=== PATIENT | male | born 1945 | race American Indian/Alaskan Native ===

== ENCOUNTER 2016-11-26 03:59 | Inpatient (IN) | payer MEDICARE ==
[2016-11-26 04:45] LABS: Basophils % (Auto) 0.6 % (0.0-1.8); Eosinophils % (Auto) 2.3 % (0.0-4.3); Hematocrit 30.6 % (35.5-45.6); Hemoglobin 10.2 gm/dl (11.8-15.2); Mean Corpuscular HGB Conc 33 % (32-34); Mean Corpuscular Hemoglobin 32 pg (28-32); Mean Corpuscular Volume 96 fl (84-94); Platelet Count 177 K/mm3 (140-440); Red Cell Distribution Width 15.8 % (13.2-15.2); White Blood Count 7.3 K/mm3 (4.5-11.0)
[2016-11-26 04:54] LABS: INR 1.15 (0.87-1.13); Partial Thromboplastin Time 35.3 Sec. (24.2-36.6)
[2016-11-26] MEDS ORDERED: DUONEB *Not for PRN Use IH ONE ×3 (05:00→15:03)
[2016-11-26 05:05] LABS: BUN/Creatinine Ratio 3.98; Calcium 8.6 mg/dL (8.4-10.2); Chloride 98.5 mmol/L (98-107); Potassium 4.9 mmol/L (3.6-5.0)
--- NOTE | 2016-11-26 05:07 | XRay Report ---
FINAL REPORT EXAM: XR CHEST 1V AP HISTORY: Chest Pain TECHNIQUE: AP portable view(s) of the chest obtained. PRIORS: None. FINDINGS: No mediastinal shift. Mild cardiomegaly. Patchy perihilar opacities and lower lung predominant interstitial prominence. No definite pleural effusion no pneumothorax or acute skeletal finding. IMPRESSION: Patchy perihilar airspace disease may be superimposed on or secondary to moderate pulmonary interstitial edema. PA and lateral chest radiographic follow-up to resolution is recommended.
[2016-11-26] MEDS ORDERED: NORMODYNE IV ONE (05:30)
--- NOTE | 2016-11-26 05:37 | Emergency Department Report ---
HPI - General Chief Complaint: Dyspnea/Respdistress Time Seen by Provider: 11/26/16 04:12 - HPI HPI: This is a 71 year-old male presents to the emergency department by EMS from home with shortness of breath. On scene, the patient's oxygen saturation was in the 70s on room air. He was placed on a nonrebreather and had some improvement. He was given a sublingual nitroglycerin. He has denied any chest pain. The shortness of breath started this morning around 1: 30 AM. He has a history of diabetes, coronary artery disease with ID in 2013 with 2 stents, hypertension, CHF and end-stage renal disease on dialysis on Saturday/Saturday/Saturday. 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 He recently was at another hospital for similar symptoms and was admitted on BiPAP at that time. No recent travel or sick contacts at home. ED Past Medical Hx - Past Medical History Previous Medical History?: Yes Hx Hypertension: Yes Hx Heart Attack/AMI: Yes (2013 2 stents) Hx Diabetes: Yes - Surgical History Past Surgical History?: Yes Hx Coronary Stent: Yes (2013) Additional Surgical History: dialysis graft left FA - Social History Smoking Status: Never Smoker Substance Use Type: None - Medications Home Medications: Home Medications Medication Instructions Recorded Confirmed Last Taken Type Apixaban [Eliquis] 5 mg PO BID 11/26/16 11/26/16 11/25/16 History Carvedilol [Coreg] 25 mg PO BID 11/26/16 11/26/16 11/25/16 History Cinacalcet HCl [Sensipar] 90 mg PO TID 11/26/16 11/26/16 11/25/16 History Citalopram [celeXA] 20 mg PO QDAY 11/26/16 11/26/16 11/25/16 History Clopidogrel [Plavix] 75 mg PO QDAY 11/26/16 11/26/16 11/25/16 History Colchicine 0.6 mg PO DAILY 11/26/16 11/26/16 11/25/16 History ISOSORBIDE MONOnitrate [Imdur ER] 30 mg PO DAILY 11/26/16 11/26/16 11/25/16 History Lisinopril [Zestril TAB] 10 mg PO QDAY 11/26/16 11/26/16 11/25/16 History Mirtazapine 30 mg PO DAILY 11/26/16 11/26/16 11/25/16 History Omeprazole 20 mg PO DAILY 11/26/16 11/26/16 11/25/16 History Rosuvastatin Calcium 5 mg PO DAILY 11/26/16 11/26/16 11/25/16 History Sevelamer Carbonate [Renvela] 800 mg PO TIDWM 11/26/16 11/26/16 11/25/16 History ED Review of Systems ROS: Stated complaint: POSS ID Other details as noted in HPI Comment: All other systems reviewed and negative Constitutional: denies: chills, fever Eyes: denies: eye pain, eye discharge, vision change ENT: denies: ear pain, throat pain Respiratory: orthopnea, shortness of breath, SOB with exertion, SOB at rest Cardiovascular: denies: chest pain, edema Gastrointestinal: denies: abdominal pain, nausea, diarrhea Genitourinary: denies: urgency, dysuria Musculoskeletal: denies: back pain, joint swelling, arthralgia Skin: denies: rash, lesions Neurological: denies: headache, weakness, paresthesias Physical Exam - Physical Exam Vital Signs: Vital Signs 11/26/16 11/26/16 11/26/16 04:02 04:07 04:15 Temperature 98.2 F Pulse Rate 88 89 86 Pulse Rate [ Posterior Bilateral Throughout] Respiratory 33 H 30 H 37 H Rate Respiratory Rate [Posterior Bilateral Throughout] Blood Pressure 181/93 166/83 Blood Pressure 181/93 [Right] O2 Sat by Pulse 95 99 Oximetry 11/26/16 11/26/16 11/26/16 04:24 04:30 04:45 Temperature Pulse Rate 94 H 99 H Pulse Rate [ Posterior Bilateral Throughout] Respiratory 23 34 H Rate Respiratory Rate [Posterior Bilateral Throughout] Blood Pressure 178/87 177/93 Blood Pressure [Right] O2 Sat by Pulse 96 Oximetry 11/26/16 11/26/16 11/26/16 05:00 05:15 05:16 Temperature Pulse Rate 111 H 137 H Pulse Rate [ 135 H Posterior Bilateral Throughout] Respiratory 38 H 32 H Rate Respiratory 32 H Rate [Posterior Bilateral Throughout] Blood Pressure 177/93 162/120 Blood Pressure [Right] O2 Sat by Pulse 85 Oximetry 11/26/16 05:18 Temperature Pulse Rate 138 H Pulse Rate [ Posterior Bilateral Throughout] Respiratory 32 H Rate Respiratory Rate [Posterior Bilateral Throughout] Blood Pressure 211/120 Blood Pressure [Right] O2 Sat by Pulse 86 Oximetry Physical Exam: GENERAL: The patient is well-developed well-nourished. HENT: Normocephalic. Atraumatic. Patient has moist mucous membranes. EYES: Extraocular motions are intact. Pupils equal reactive to light bilaterally. NECK: Supple. Trachea is midline. CHEST/LUNGS: Coarse breath sounds at the chest. There is some tachypnea and supraclavicular accessory muscle use. There is respiratory distress noted. HEART/CARDIOVASCULAR: Regular. There is no tachycardia. There is no gallop rub or murmur. ABDOMEN: Abdomen is soft, nontender. Patient has normal bowel sounds. There is no abdominal distention. SKIN: Skin is warm but there is some diaphoresis. NEURO: The patient is awake, alert, and oriented. The patient is cooperative. The patient has no focal neurologic deficits. MUSCULOSKELETAL: There is no tenderness or deformity. There is no limitation range of motion. There is no evidence of acute injury. There is a dialysis fistula to the left upper extremity that appears patent. ED Course Vital Signs 11/26/16 11/26/16 11/26/16 04:02 04:07 04:15 Temperature 98.2 F Pulse Rate 88 89 86 Pulse Rate [ Posterior Bilateral Throughout] Respiratory 33 H 30 H 37 H Rate Respiratory Rate [Posterior Bilateral Throughout] Blood Pressure 181/93 166/83 Blood Pressure 181/93 [Right] O2 Sat by Pulse 95 99 Oximetry 11/26/16 11/26/16 11/26/16 04:24 04:30 04:45 Temperature Pulse Rate 94 H 99 H Pulse Rate [ Posterior Bilateral Throughout] Respiratory 23 34 H Rate Respiratory Rate [Posterior Bilateral Throughout] Blood Pressure 178/87 177/93 Blood Pressure [Right] O2 Sat by Pulse 96 Oximetry 11/26/16 11/26/16 11/26/16 05:00 05:15 05:16 Temperature Pulse Rate 111 H 137 H Pulse Rate [ 135 H Posterior Bilateral Throughout] Respiratory 38 H 32 H Rate Respiratory 32 H Rate [Posterior Bilateral Throughout] Blood Pressure 177/93 162/120 Blood Pressure [Right] O2 Sat by Pulse 85 Oximetry 11/26/16 05:18 Temperature Pulse Rate 138 H Pulse Rate [ Posterior Bilateral Throughout] Respiratory 32 H Rate Respiratory Rate [Posterior Bilateral Throughout] Blood Pressure 211/120 Blood Pressure [Right] O2 Sat by Pulse 86 Oximetry - Consultations Consultation #1: I spoke to the jewel bearing facer on-call, Dr. Miller, who says that he will arrange for the patient to receive dialysis early this morning. 11/26/16 06:39 ED Medical Decision Making - Lab Data Result diagrams: 11/26/16 04:23 11/26/16 04:23 - EKG Data -: EKG Interpreted by Me EKG shows normal: sinus rhythm, axis, intervals (prolonged QT/QTc), QRS complexes (LVH), ST-T waves (there is some hyperacute T waves,) Rate: normal - EKG Data When compared to previous EKG there are: previous EKG unavailable Interpretation: other (sinus rhythm, LVH, prolonged QT/QTC, hyperacute T waves) - Radiology Data Radiology results: image reviewed interpreted by me: Chest x-ray shows some pulmonary vascular congestion and some basilar pleural effusions. - Medical Decision Making 71-year-old male presents with some shortness of breath since late last night. He is due for dialysis today and appears volume overloaded. He came in on a nonrebreather and was moved to a BiPAP. EKG does not show any ST elevation ID. There is no hyperkalemia labs. However chest x-ray shows vascular congestion and pleural effusions. Patient appears more stable on BiPAP and will remain on it until dialysis. Nephrology should be arranging for dialysis early this morning. Patient accepted for admission by the hospitalist, Dr Gomez. - Differential Diagnosis pneumonia, CHF, hyperkalemia, ID Critical Care Time: No Critical care attestation.: If time is entered above; I have spent that time in minutes in the direct care of this critically ill patient, excluding procedure time. ED Disposition Clinical Impression: End-stage renal disease needing dialysis Dyspnea Qualifiers: Dyspnea type: shortness of breath Qualified Code(s): R06.02 - Shortness of breath; R06.00 - Dyspnea, unspecified; R06.01 - Orthopnea Volume overload Qualifiers: Hypervolemia type: unspecified Qualified Code(s): E87.70 - Fluid overload, unspecified CHF (congestive heart failure) Qualifiers: Congestive heart failure type: unspecified congestive heart failure type Congestive heart failure chronicity: unspecified congestive heart failure chronicity Qualified Code(s): I50.9 - Heart failure, unspecified Disposition: 09 OP ADMIT IP TO THIS HOSP Is pt being admited?: Yes Condition: Stable Referrals: PRIMARY CARE, [Primary Care Provider] - 3-5 Days Time of Disposition: 06:42
[2016-11-26] MEDS ORDERED: CARDENE 50 MG in NACL 0.9% 250ML 230 ML IV SCH (06:00)
[2016-11-26] MEDS ORDERED: NACL 0.9% 100 ML IV PRN (07:03)
[2016-11-26] MEDS ORDERED: NON-FORMULARY (Cinacalcet Hcl [Sensipar] 90 MG) PO SCH (08:00)
[2016-11-26] MEDS ORDERED: PROVENTIL IH PRN (08:00)
[2016-11-26] MEDS ORDERED: ZOFRAN IM PRN (08:02)
--- NOTE | 2016-11-26 08:06 | History and Physical Report ---
<YVON LEES - Last Filed: 11/26/16 18:31> History of Present Illness Date of examination: 11/26/16 Date of admission: 11/26/2016 Chief complaint: shortness of breath History of present illness: Patient is a 71 year-old male with past medical history of diabetes, coronary artery disease with IN in 2013 with 2 stents, hypertension, CHF and end-stage renal disease on dialysis on Saturday/Saturday/Saturday,presents to the emergency department by EMS from home with shortness of breath. He recently was at [facility] for similar symptoms and was discharged on 11/17/16. Patient since discharge from [facility] patient developed dyspnea on exertion. Patient difficulty of breathing gets worst this morning around 1:30 AM he has had progressive worsening of shortness of breath to the point could not catch his breath.His called 911 and they brought him to the ED. No alleviating and aggravating factors. Patient denies he has had no fevers, chills, or cough, night sweats. No hx of recurrent pneumonia. he has no sick contact, TB exposure (that she knows of ie incarcerated, homeless). He also has no pets, has not been around any farm animals, and has not traveled recently or been around those who have. Patient currently on continues BiPAP with oxygen saturation of >95%. no acute respiratory distress noted. 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 Past History Past Medical History: diabetes, ESRD, heart failure, hypertension, other (IN in 2013) Past Surgical History: Other (Dialysis graft left FA and stent placement in 2013 ) Social history: denies: smoking, alcohol abuse Family history: CAD, hypertension Medications and Allergies Allergies Allergy/AdvReac Type Severity Reaction Status Date / Time No Known Allergies Allergy Unverified 12/24/13 08:06 Home Medications Medication Instructions Recorded Confirmed Last Taken Type Apixaban [Eliquis] 5 mg PO BID 11/26/16 11/26/16 11/25/16 History Carvedilol [Coreg] 25 mg PO BID 11/26/16 11/26/16 11/25/16 History Cinacalcet HCl [Sensipar] 90 mg PO TID 11/26/16 11/26/16 11/25/16 History Citalopram [celeXA] 20 mg PO QDAY 11/26/16 11/26/16 11/25/16 History Clopidogrel [Plavix] 75 mg PO QDAY 11/26/16 11/26/16 11/25/16 History Colchicine 0.6 mg PO DAILY 11/26/16 11/26/16 11/25/16 History ISOSORBIDE MONOnitrate [Imdur ER] 30 mg PO DAILY 11/26/16 11/26/16 11/25/16 History Lisinopril [Zestril TAB] 10 mg PO QDAY 11/26/16 11/26/16 11/25/16 History Mirtazapine 30 mg PO DAILY 11/26/16 11/26/16 11/25/16 History Omeprazole 20 mg PO DAILY 11/26/16 11/26/16 11/25/16 History Rosuvastatin Calcium 5 mg PO DAILY 11/26/16 11/26/16 11/25/16 History Sevelamer Carbonate [Renvela] 800 mg PO TIDWM 11/26/16 11/26/16 11/25/16 History Active Meds: Active Medications Al Hydrox/Mg Hydrox/Simethicone (Alum-Mag Hydrox-Simeth [id number]/5ml) 30 ml PO Q4H PRN PRN Reason: Indigestion Albuterol (Proventil) 2.5 mg IH Q3HRT PRN PRN Reason: Shortness Of Breath Albuterol/Ipratropium (Duoneb *Not For Prn Use*) 1 ampul IH Q6HRT SHANTELL Apixaban (Eliquis) 5 mg PO BID SHANTELL PRN Reason: Protocol Bisacodyl (Dulcolax) 10 mg IN QDAY PRN PRN Reason: constipation unrelieved by MOM Carvedilol (Coreg) 25 mg PO BID SHANTELL Citalopram Hydrobromide (Celexa) 20 mg PO QDAY SHANTELL Clopidogrel Bisulfate (Plavix) 75 mg PO QDAY SHANTELL Nicardipine HCl 50 mg/ Sodium (Chloride) 250 mls @ 25 mls/hr IV TITR SHANTELL; 5 MG/ HR PRN Reason: Protocol Sodium Chloride (Nacl 0.9%) 100 mls @ 999 mls/hr IV TANIKA PRN PRN Reason: Hypotension Isosorbide Mononitrate (Imdur) 30 mg PO DAILY [facility] Lisinopril (Zestril) 10 mg PO QDAY [facility] Mirtazapine (Remeron) 30 mg PO DAILY [facility] Miscellaneous Medication (Cinacalcet Hcl [Sensipar]) 90 mg PO TID [facility] Miscellaneous Medication (Colchicine [Colchicine]) 0.6 mg PO DAILY [facility] Miscellaneous Medication (Omeprazole [Omeprazole]) 20 mg PO DAILY [facility] Miscellaneous Medication (Rosuvastatin Calcium [Rosuvastatin Calcium]) 5 mg PO DAILY [facility] Morphine Sulfate (Morphine) 2 mg IV Q4H PRN PRN Reason: Pain, Moderate (4-6) Ondansetron HCl (Zofran) 4 mg IM Q4H PRN PRN Reason: Nausea And Vomiting Sevelamer Carbonate (Renvela) 800 mg PO TIDWM [facility] Review of Systems Constitutional: no weight loss, no weight gain, no fever, no chills Ears, nose, mouth and throat: no ear discharge, no tinnitis, no decreased hearing, no nose pain, no nasal congestion Cardiovascular: shortness of breath, dyspnea on exertion, paroxysmal nocturnal dyspnea, no chest pain, no orthopnea, no palpitations, no rapid/irregular heart beat, no syncope, no lightheadedness Respiratory: cough, shortness of breath, dyspnea on exertion, congestion, no cough with sputum, no excessive sputum, no hemoptysis Gastrointestinal: no abdominal pain, no nausea, no vomiting, no diarrhea, no constipation Genitourinary Male: no hematuria, no flank pain, no discharge, no urinary frequency Rectal: no incontinence, no bleeding Musculoskeletal: no neck pain, no shooting arm pain, no arm numbness/tingling, no low back pain Integumentary: no pruritis, no redness, no sores, no wounds, no jaundice Neurological: no transient paralysis, no paralysis, no weakness, no parathesias Psychiatric: no memory loss, no change in sleep habits, no sleep disturbances, no insomnia, no hypersomnia, no change in appetite Endocrine: no heat intolerance, no polyphagia, no excessive thirst, no polydipsia, no nocturia Hematologic/Lymphatic: no easy bruising, no easy bleeding Allergic/Immunologic: no urticaria, no allergic rhinitis Exam - Constitutional Vitals: Temp Pulse Resp BP Pulse Ox 98.2 F 87 30 H 149/79 92 11/26/16 04:07 11/26/16 07:06 11/26/16 07:06 11/26/16 07:06 11/26/16 07:06 General appearance: Present: mild distress, other (on BiPAP 50% with SPO2 >95%) - EENT Eyes: Present: PERRL ENT: hearing intact - Neck Neck: Present: supple - Respiratory Respiratory effort: normal Respiratory: bilateral: rales, wheezing - Cardiovascular Rhythm: regular Heart Sounds: Present: S1 & S2 - Extremities Extremities: no ischemia Peripheral Pulses: within normal limits - Abdominal General gastrointestinal: Present: soft, non-tender Male genitourinary: Present: deferred - Rectal Rectal Exam: deferred - Integumentary Integumentary: Present: clear, warm, dry - Musculoskeletal Musculoskeletal: strength equal bilaterally - Psychiatric Psychiatric: appropriate mood/affect - Neurologic Neurologic: CNII-XII intact - Allied Health Allied health notes reviewed: nursing Results - Labs CBC & Chem 7: 11/26/16 04:23 11/26/16 04:23 Labs: Laboratory Last Values WBC 7.3 K/mm3 (4.5-11.0) 11/26/16 04:23 RBC 3.20 M/mm3 (3.65-5.03) L 11/26/16 04:23 Hgb 10.2 gm/dl (11.8-15.2) L 11/26/16 04:23 Hct 30.6 % (35.5-45.6) L 11/26/16 04:23 MCV 96 fl (84-94) H 11/26/16 04:23 MCH 32 pg (28-32) 11/26/16 04:23 MCHC 33 % (32-34) 11/26/16 04:23 RDW 15.8 % (13.2-15.2) H 11/26/16 04:23 Plt Count 177 K/mm3 (140-440) 11/26/16 04:23 Lymph % (Auto) 13.5 % (13.4-35.0) 11/26/16 04:23 [place]ry % (Auto) 9.3 % (0.0-7.3) H 11/26/16 04:23 Eos % (Auto) 2.3 % (0.0-4.3) 11/26/16 04:23 Baso % (Auto) 0.6 % (0.0-1.8) 11/26/16 04:23 Lymph # 1.0 K/mm3 (1.2-5.4) L 11/26/16 04:23 [place] # 0.7 K/mm3 (0.0-0.8) 11/26/16 04:23 Eos # 0.2 K/mm3 (0.0-0.4) 11/26/16 04:23 Baso # 0.0 K/mm3 (0.0-0.1) 11/26/16 04:23 Seg Neutrophils % 74.3 % (40.0-70.0) H 11/26/16 04:23 Seg Neutrophils # 5.4 K/mm3 (1.8-7.7) 11/26/16 04:23 PT 14.6 Sec. (12.2-14.9) 11/26/16 04:23 INR 1.15 (0.87-1.13) H 11/26/16 04:23 APTT 35.3 Sec. (24.2-36.6) 11/26/16 04:23 D-Dimer 276.39 ng/mlDDU (0-234) H 11/26/16 04:23 Sodium 140 mmol/L (137-145) 11/26/16 04:23 Potassium 4.9 mmol/L (3.6-5.0) 11/26/16 04:23 Chloride 98.5 mmol/L (98-107) 11/26/16 04:23 Carbon Dioxide 24 mmol/L (22-30) 11/26/16 04:23 Anion Gap 22 mmol/L 11/26/16 04:23 BUN 51 mg/dL (9-20) H 11/26/16 04:23 Creatinine 12.8 mg/dL (0.8-1.5) H 11/26/16 04:23 Estimated GFR 5 ml/min 11/26/16 04:23 BUN/Creatinine Ratio 3.98 % 11/26/16 04:23 Glucose 166 mg/dL (75-100) H 11/26/16 04:23 Calcium 8.6 mg/dL (8.4-10.2) 11/26/16 04:23 Troponin T 0.319 ng/mL (0.00-0.029) H* 11/26/16 04:23 Triglycerides 92 mg/dL (2-149) 11/26/16 04:23 Cholesterol 104 mg/dL (50-199) 11/26/16 04:23 LDL Cholesterol Direct 47 mg/dL (50-130) L 11/26/16 04:23 HDL Cholesterol 50 mg/dL (40-59) 11/26/16 04:23 Cholesterol/HDL Ratio 2.08 % 11/26/16 04:23 - Imaging and Cardiology Chest x-ray: image reviewed (Patchy perihilr airspace may be superimposed on or secondary to moderate pulmonary interstitial edema.) Assessment and Plan Assessment and plan: Patient is a 71 year-old male with past medical history of diabetes, coronary artery disease with IN in 2013 with 2 stents, hypertension, CHF and end-stage renal disease on dialysis on Saturday/Saturday/Saturday,presents to the emergency department by EMS from home with shortness of breath. He recently was at [facility] for similar symptoms and was discharged on 11/17/16. Patient since discharge from [facility] patient developed dyspnea on exertion. Patient difficulty of breathing gets worst this morning around 1:30 AM he has had progressive worsening of shortness of breath. Acute respiratory failure with hypoxia Patient oxygen saturation improved with BiPAP 50%.Patient currently on BiPAP 35 % with SPO2 98%. No acute respiratory distress noted. Aggressive Nebulizers/Inhalers ABG when necessary Oxygen supplement Pulmonary consult. Supportive care Acute on chronic combined systolic and diastolic heart failure Patient has recent Echocardiogram with left ventricle ejection fraction of 30-35 % Continue on Diuresis, beta blockers and ACEI/ARB Strict I&O's and daily weights Low-sodium/cardiac diet, fluid restriction 1200 mg every 24 hours Closely monitor electrolytes Cardiology evaluation Acute pulmonary edema Emergent hemodialysis for fluid removal Nephrology consulted Elevated D-maria esther closely monitor Elevated troponin level Most likely due to ESRD and CHF Cardiology evaluation Hypertension We will resume home antihypertensive medications Closely monitor blood pressure Diabetes mellitus Accu-Chek before meals and at bedtime Sliding scale insulin/NovoLog Chronic Anemia Stable at this time no need of transfusion Closely monitor H&H DVT/Prophylaxis Lovenox Advance Directives: Yes VTE prophylaxis?: Chemical Contraindication Mechanical VTE Prophylaxis: Treatment Not Indicated Plan of care discussed with patient/family: Yes <KATEY GIRARD R - Last Filed: 11/26/16 23:44> History of Present Illness Date of admission: 11/26/16 07:56 Exam - Constitutional Vitals: Temp Pulse Resp BP Pulse Ox 98.8 F 108 H 20 122/64 96 11/26/16 19:55 11/26/16 21:40 11/26/16 21:40 11/26/16 21:40 11/26/16 21:40 Results - Labs CBC & Chem 7: 11/26/16 04:23 11/26/16 04:23 Labs: Laboratory Last Values WBC 7.3 K/mm3 (4.5-11.0) 11/26/16 04:23 RBC 3.20 M/mm3 (3.65-5.03) L 11/26/16 04:23 Hgb 10.2 gm/dl (11.8-15.2) L 11/26/16 04:23 Hct 30.6 % (35.5-45.6) L 11/26/16 04:23 MCV 96 fl (84-94) H 11/26/16 04:23 MCH 32 pg (28-32) 11/26/16 04:23 MCHC 33 % (32-34) 11/26/16 04:23 RDW 15.8 % (13.2-15.2) H 11/26/16 04:23 Plt Count 177 K/mm3 (140-440) 11/26/16 04:23 Lymph % (Auto) 13.5 % (13.4-35.0) 11/26/16 04:23 Surry % (Auto) 9.3 % (0.0-7.3) H 11/26/16 04:23 Eos % (Auto) 2.3 % (0.0-4.3) 11/26/16 04:23 Baso % (Auto) 0.6 % (0.0-1.8) 11/26/16 04:23 Lymph # 1.0 K/mm3 (1.2-5.4) L 11/26/16 04:23 [place] # 0.7 K/mm3 (0.0-0.8) 11/26/16 04:23 Eos # 0.2 K/mm3 (0.0-0.4) 11/26/16 04:23 Baso # 0.0 K/mm3 (0.0-0.1) 11/26/16 04:23 Seg Neutrophils % 74.3 % (40.0-70.0) H 11/26/16 04:23 Seg Neutrophils # 5.4 K/mm3 (1.8-7.7) 11/26/16 04:23 PT 14.6 Sec. (12.2-14.9) 11/26/16 04:23 INR 1.15 (0.87-1.13) H 11/26/16 04:23 APTT 35.3 Sec. (24.2-36.6) 11/26/16 04:23 D-Dimer 276.39 ng/mlDDU (0-234) H 11/26/16 04:23 Sodium 140 mmol/L (137-145) 11/26/16 04:23 Potassium 4.9 mmol/L (3.6-5.0) 11/26/16 04:23 Chloride 98.5 mmol/L (98-107) 11/26/16 04:23 Carbon Dioxide 24 mmol/L (22-30) 11/26/16 04:23 Anion Gap 22 mmol/L 11/26/16 04:23 BUN 51 mg/dL (9-20) H 11/26/16 04:23 Creatinine 12.8 mg/dL (0.8-1.5) H 11/26/16 04:23 Estimated GFR 5 ml/min 11/26/16 04:23 BUN/Creatinine Ratio 3.98 % 11/26/16 04:23 Glucose 166 mg/dL (75-100) H 11/26/16 04:23 POC Glucose 153 (70-105) H 11/26/16 14:16 Calcium 8.6 mg/dL (8.4-10.2) 11/26/16 04:23 Troponin T 0.319 ng/mL (0.00-0.029) H* 11/26/16 04:23 Triglycerides 92 mg/dL (2-149) 11/26/16 04:23 Cholesterol 104 mg/dL (50-199) 11/26/16 04:23 LDL Cholesterol Direct 47 mg/dL (50-130) L 11/26/16 04:23 HDL Cholesterol 50 mg/dL (40-59) 11/26/16 04:23 Cholesterol/HDL Ratio 2.08 % 11/26/16 04:23 Assessment and Plan Assessment and plan: I saw and evaluated the patient. I agree with the findings and the plan of care as documented in the Nurse Practitioner's~note. Patient presented with acute respiratory failure with hypoxia due to cute pulmonary edema from volume overload due to acute on chronic CHF.
[2016-11-26] MEDS ORDERED: D50W (25GM) Syringe IV PRN (09:00)
[2016-11-26] MEDS ORDERED: ALUM-MAG HYDROX-SIMETH 200-200-20MG/5ML PO PRN (09:00)
[2016-11-26] MEDS: RENVELA PO SCH ×2 (09:17→14:25)
[2016-11-26] MEDS: DUONEB *Not for PRN Use IH SCH ×3 (09:39→20:05)
[2016-11-26] MEDS ORDERED: DULCOLAX PR PRN (10:00)
[2016-11-26] MEDS ORDERED: NON-FORMULARY (Colchicine [Colchicine] 0.6 MG) PO SCH (10:00)
[2016-11-26] MEDS ORDERED: COREG PO SCH (10:00)
[2016-11-26] MEDS ORDERED: MORPHINE IV PRN (10:00)
[2016-11-26] MEDS ORDERED: PLAVIX PO SCH (10:00)
[2016-11-26] MEDS ORDERED: celeXA PO SCH (10:00)
[2016-11-26] MEDS ORDERED: NON-FORMULARY (Omeprazole [Omeprazole] 20 MG) PO SCH (10:00)
[2016-11-26] MEDS ORDERED: PROTONIX PO SCH (10:00)
[2016-11-26] MEDS ORDERED: ZESTRIL PO SCH (10:00)
[2016-11-26] MEDS ORDERED: COLCRYS PO SCH ×2 (10:00→11:00)
[2016-11-26] MEDS ORDERED: ROSUVASTATIN CALCIUM 5 MG PO SCH (10:00)
[2016-11-26] MEDS ORDERED: ELIQUIS PO SCH (10:00)
[2016-11-26] MEDS ORDERED: REMERON PO SCH (11:00)
[2016-11-26] MEDS ORDERED: IMDUR PO SCH (11:00)
[2016-11-26] MEDS ORDERED: NOVOLOG SUB-Q SCH ×2 (11:30→22:00)
--- NOTE | 2016-11-26 11:30 | Consultation ---
History of Present Illness - Reason for Consult Consult date: 11/26/16 end stage renal disease - History of Present Illness 71yr old male with end stage renal disease on HD on MWF schedule at [facility] dialysis with Dr Boothe, admitted after he presents to the hospital with complaints of shortness of breath x 1 day duration. He states that he has been compliant with his fluid/salt restriction with dialysis and did not miss his dialysis. He has AVF for dialysis. In the ER he is placed on Bipap. Chest x- ray reports vascular congestion. Past History Past Medical History: diabetes, ESRD, heart failure, hypertension, other ([place] in 2014) Past Surgical History: Other (Dialysis graft left FA and stent placement in 2013 ) Social history: denies: smoking, alcohol abuse Family history: CAD, hypertension Medications and Allergies Allergies Allergy/AdvReac Type Severity Reaction Status Date / Time No Known Allergies Allergy Unverified 12/24/13 08:06 Home Medications Medication Instructions Recorded Confirmed Last Taken Type Apixaban [Eliquis] 5 mg PO BID 11/26/16 11/26/16 11/25/16 History Carvedilol [Coreg] 25 mg PO BID 11/26/16 11/26/16 11/25/16 History Cinacalcet HCl [Sensipar] 90 mg PO TID 11/26/16 11/26/16 11/25/16 History Citalopram [celeXA] 20 mg PO QDAY 11/26/16 11/26/16 11/25/16 History Clopidogrel [Plavix] 75 mg PO QDAY 11/26/16 11/26/16 11/25/16 History Colchicine 0.6 mg PO DAILY 11/26/16 11/26/16 11/25/16 History ISOSORBIDE MONOnitrate [Imdur ER] 30 mg PO DAILY 11/26/16 11/26/16 11/25/16 History Lisinopril [Zestril TAB] 10 mg PO QDAY 11/26/16 11/26/16 11/25/16 History Mirtazapine 30 mg PO DAILY 11/26/16 11/26/16 11/25/16 History Omeprazole 20 mg PO DAILY 11/26/16 11/26/16 11/25/16 History Rosuvastatin Calcium 5 mg PO DAILY 11/26/16 11/26/16 11/25/16 History Sevelamer Carbonate [Renvela] 800 mg PO TIDWM 11/26/16 11/26/16 11/25/16 History Active Meds: Active Medications Al Hydrox/Mg Hydrox/Simethicone (Alum-Mag Hydrox-Simeth 585-900-03xw/5ml) 30 ml PO Q4H PRN PRN Reason: Indigestion Albuterol (Proventil) 2.5 mg IH Q3HRT PRN PRN Reason: Shortness Of Breath Albuterol/Ipratropium (Duoneb *Not For Prn Use*) 1 ampul IH Q6HRT [facility] Last Admin: 11/26/16 09:39 Dose: 1 ampul Apixaban (Eliquis) 5 mg PO BID [facility] PRN Reason: Protocol Bisacodyl (Dulcolax) 10 mg [place] QDAY PRN PRN Reason: constipation Carvedilol (Coreg) 25 mg PO BID [facility] Citalopram Hydrobromide (Celexa) 20 mg PO QDAY [facility] Clopidogrel Bisulfate (Plavix) 75 mg PO QDAY [facility] Colchicine (Colcrys) 0.6 mg PO QDAY [facility] Dextrose (D50w (25gm) Syringe) 50 ml IV PRN PRN PRN Reason: Hypoglycemia Furosemide (Lasix) 40 mg IV 0600,1800 [facility] Nicardipine HCl 50 mg/ Sodium (Chloride) 250 mls @ 25 mls/hr IV TITR [facility]; 5 MG/ HR PRN Reason: Protocol Sodium Chloride (Nacl 0.9%) 100 mls @ 999 mls/hr IV TANIKA PRN PRN Reason: Hypotension Insulin Aspart (Novolog) 0 units SUB-Q AC [facility] PRN Reason: Protocol Insulin Aspart (Novolog) 0 units SUB-Q QHS [facility] PRN Reason: Protocol Isosorbide Mononitrate (Imdur) 30 mg PO DAILY [facility] Lisinopril (Zestril) 10 mg PO QDAY [facility] Mirtazapine (Remeron) 30 mg PO DAILY [facility] Miscellaneous Medication (Cinacalcet Hcl [Sensipar]) 90 mg PO TID [facility] Last Admin: 11/26/16 09:17 Dose: Not Given Miscellaneous Medication (Colchicine [Colchicine]) 0.6 mg PO DAILY [facility] Miscellaneous Medication (Omeprazole [Omeprazole]) 20 mg PO DAILY [facility] Miscellaneous Medication (Rosuvastatin Calcium [Rosuvastatin Calcium]) 5 mg PO DAILY [facility] Morphine Sulfate (Morphine) 2 mg IV Q4H PRN PRN Reason: Pain, Moderate (4-6) Ondansetron HCl (Zofran) 4 mg IM Q4H PRN PRN Reason: Nausea And Vomiting Sevelamer Carbonate (Renvela) 800 mg PO TIDWM [facility] Last Admin: 11/26/16 09:17 Dose: Not Given Review of Systems Constitutional: fatigue, no weight loss, no weight gain Ears, nose, mouth and throat: no nasal congestion, no nasal discharge, no sinus pressure, no dysphagia Cardiovascular: orthopnea, shortness of breath, no chest pain Respiratory: cough with sputum Gastrointestinal: no abdominal pain, no nausea, no vomiting Genitourinary Male: no dysuria, no hematuria, no flank pain Rectal: no pain, no incontinence Musculoskeletal: no neck pain, no shooting arm pain, no low back pain Integumentary: no rash, no pruritis, no redness, no sores Neurological: no paralysis, no weakness, no numbness, no tingling Psychiatric: no anxiety, no memory loss Endocrine: no cold intolerance, no heat intolerance Hematologic/Lymphatic: no easy bruising, no easy bleeding Exam - Vital Signs Vital signs: Vital Signs Pulse Resp 88 33 H 11/26/16 04:02 11/26/16 04:02 - General Appearance General appearance: well-developed, well-nourished, appears stated age, moderate distress, other (on bipap) EENT: PERRL, mucous membranes moist Neck: Present: neck supple, trachea midline. Absent: JVD/HJR, Masses Respiratory: Rales, Ronchi Heart: regular, normal heart rate, S1S2, no murmurs Gastrointestinal: Present: normoactive bowel sounds. Absent: tenderness Integumentary: no rash, warm and dry Neurologic: no focal deficit, alert and oriented x3, gait normal, strength 5/5 Musculoskeletal: Absent: deformities, joint swelling Psychiatric: mood/affect appropriate, cooperative Results - Lab Results 11/26/16 04:23 11/26/16 04:23 Most recent lab results Calcium 8.6 mg/dL (8.4-10.2) 11/26/16 04:23 Assessment and Plan 1. ESRD on HD 2. Fluid overload 3. Acute hypoxic respiratory failure 4. Cardiomyopathy 5. Essential Hypertension 6. Anemia of ESRD Plan: Dialysis arrangement made Will remove 3-4 L as BP/HR allows Will re evaluate for more ultrafiltration in am Epogen on dialysis Continue BiPAP support Resume oral antihypertensives Discussed with RN
--- NOTE | 2016-11-26 12:50 | Consultation ---
History of Present Illness Consult date: 11/26/16 Consult reason: elevated troponin History of present illness: This is a 71yr old male with end stage renal disease who presents to this hospital with complaints of shortness of breath. Patient is currently on Bipap therapy. Chest x-ray reports vascular congestion. He denies any missed dialysis sessions. Reports he was recently discharged from [facility] with similar symptoms. A cardiac consultation was requested for elevated troponin of 0.31. This is likely in the setting of renal disease, creatinine of 12.8 on presentation. Patient denies chest pain. His ECG shows a sinus rhythm with LVH of repolarization abnormalities. Past History Past Medical History: diabetes, ESRD, heart failure, hypertension, other ([place] in 2013) Past Surgical History: Other (Dialysis graft left FA and stent placement in 2013 ) Social history: denies: smoking, alcohol abuse Family history: CAD, hypertension Medications and Allergies Allergies Allergy/AdvReac Type Severity Reaction Status Date / Time No Known Allergies Allergy Unverified 12/24/13 08:06 Home Medications Medication Instructions Recorded Confirmed Last Taken Type Apixaban [Eliquis] 5 mg PO BID 11/26/16 11/26/16 11/25/16 History Carvedilol [Coreg] 25 mg PO BID 11/26/16 11/26/16 11/25/16 History Cinacalcet HCl [Sensipar] 90 mg PO TID 11/26/16 11/26/16 11/25/16 History Citalopram [celeXA] 20 mg PO QDAY 11/26/16 11/26/16 11/25/16 History Clopidogrel [Plavix] 75 mg PO QDAY 11/26/16 11/26/16 11/25/16 History Colchicine 0.6 mg PO DAILY 11/26/16 11/26/16 11/25/16 History ISOSORBIDE MONOnitrate [Imdur ER] 30 mg PO DAILY 11/26/16 11/26/16 11/25/16 History Lisinopril [Zestril TAB] 10 mg PO QDAY 11/26/16 11/26/16 11/25/16 History Mirtazapine 30 mg PO DAILY 11/26/16 11/26/16 11/25/16 History Omeprazole 20 mg PO DAILY 11/26/16 11/26/16 11/25/16 History Rosuvastatin Calcium 5 mg PO DAILY 11/26/16 11/26/16 11/25/16 History Sevelamer Carbonate [Renvela] 800 mg PO TIDWM 11/26/16 11/26/16 11/25/16 History Active Meds: Active Medications Al Hydrox/Mg Hydrox/Simethicone (Alum-Mag Hydrox-Simeth [id number]/5ml) 30 ml PO Q4H PRN PRN Reason: Indigestion Albuterol (Proventil) 2.5 mg IH Q3HRT PRN PRN Reason: Shortness Of Breath Albuterol/Ipratropium (Duoneb *Not For Prn Use*) 1 ampul IH Q6HRT [facility] Last Admin: 11/26/16 09:39 Dose: 1 ampul Apixaban (Eliquis) 5 mg PO BID [facility] PRN Reason: Protocol Atorvastatin Calcium (Lipitor) 10 mg PO QHS [facility] Bisacodyl (Dulcolax) 10 mg [place] QDAY PRN PRN Reason: constipation Carvedilol (Coreg) 25 mg PO BID [facility] Citalopram Hydrobromide (Celexa) 20 mg PO QDAY [facility] Clopidogrel Bisulfate (Plavix) 75 mg PO QDAY [facility] Colchicine (Colcrys) 0.6 mg PO QDAY [facility] Colchicine (Colcrys) 0.6 mg PO QDAY [facility] Dextrose (D50w (25gm) Syringe) 50 ml IV PRN PRN PRN Reason: Hypoglycemia Furosemide (Lasix) 40 mg IV 0600,1800 [facility] Nicardipine HCl 50 mg/ Sodium (Chloride) 250 mls @ 25 mls/hr IV TITR [facility]; 5 MG/ HR PRN Reason: Protocol Sodium Chloride (Nacl 0.9%) 100 mls @ 999 mls/hr IV TANIKA PRN PRN Reason: Hypotension Insulin Aspart (Novolog) 0 units SUB-Q AC [facility] PRN Reason: Protocol Insulin Aspart (Novolog) 0 units SUB-Q QHS [facility] PRN Reason: Protocol Isosorbide Mononitrate (Imdur) 30 mg PO DAILY [facility] Lisinopril (Zestril) 10 mg PO QDAY [facility] Mirtazapine (Remeron) 30 mg PO DAILY [facility] Morphine Sulfate (Morphine) 2 mg IV Q4H PRN PRN Reason: Pain, Moderate (4-6) Ondansetron HCl (Zofran) 4 mg IM Q4H PRN PRN Reason: Nausea And Vomiting Pantoprazole Sodium (Protonix) 20 mg PO QDAY [facility] Sevelamer Carbonate (Renvela) 800 mg PO TIDWM [facility] Last Admin: 11/26/16 09:17 Dose: Not Given Physical Examination Vital Signs Pulse Resp 88 33 H 11/26/16 04:02 11/26/16 04:02 Cardiac: Positive: Reg Rate and Rhythm Results 11/26/16 04:23 11/26/16 04:23 Assessment and Plan Volume overload Hypertension ESRD on HD Elevated troponin likely in the setting on renal disease. Plan: We will obtain prior cardiac workup from [facility]. Optimal BP management. Dialysis for fluid management.
[2016-11-26] MEDS ORDERED: PLAVIX ONE (14:09)
[2016-11-26] MEDS ORDERED: celeXA ONE (14:09)
[2016-11-26] MEDS ORDERED: COREG ONE (14:09)
[2016-11-26] MEDS ORDERED: ZESTRIL ONE (14:10)
--- NOTE | 2016-11-26 17:27 | Consultation ---
Past History Past Medical History: diabetes, ESRD, heart failure, hypertension, other ([place] in 2014) Past Surgical History: Other (Dialysis graft left FA and stent placement in 2014 ) Social history: denies: smoking, alcohol abuse Family history: CAD, hypertension Medications and Allergies Allergies Allergy/AdvReac Type Severity Reaction Status Date / Time No Known Allergies Allergy Unverified 12/24/13 08:06 Home Medications Medication Instructions Recorded Confirmed Last Taken Type Apixaban [Eliquis] 5 mg PO BID 11/26/16 11/26/16 11/25/16 History Carvedilol [Coreg] 25 mg PO BID 11/26/16 11/26/16 11/25/16 History Cinacalcet HCl [Sensipar] 90 mg PO TID 11/26/16 11/26/16 11/25/16 History Citalopram [celeXA] 20 mg PO QDAY 11/26/16 11/26/16 11/25/16 History Clopidogrel [Plavix] 75 mg PO QDAY 11/26/16 11/26/16 11/25/16 History Colchicine 0.6 mg PO DAILY 11/26/16 11/26/16 11/25/16 History ISOSORBIDE MONOnitrate [Imdur ER] 30 mg PO DAILY 11/26/16 11/26/16 11/25/16 History Lisinopril [Zestril TAB] 10 mg PO QDAY 11/26/16 11/26/16 11/25/16 History Mirtazapine 30 mg PO DAILY 11/26/16 11/26/16 11/25/16 History Omeprazole 20 mg PO DAILY 11/26/16 11/26/16 11/25/16 History Rosuvastatin Calcium 5 mg PO DAILY 11/26/16 11/26/16 11/25/16 History Sevelamer Carbonate [Renvela] 800 mg PO TIDWM 11/26/16 11/26/16 11/25/16 History Active Meds: Active Medications Al Hydrox/Mg Hydrox/Simethicone (Alum-Mag Hydrox-Simeth 074-759-53qz/5ml) 30 ml PO Q4H PRN PRN Reason: Indigestion Albuterol (Proventil) 2.5 mg IH Q3HRT PRN PRN Reason: Shortness Of Breath Albuterol/Ipratropium (Duoneb *Not For Prn Use*) 1 ampul IH Q6HRT [facility] Last Admin: 11/26/16 15:32 Dose: 1 ampul Apixaban (Eliquis) 5 mg PO BID [facility] PRN Reason: Protocol Last Admin: 11/26/16 14:24 Dose: 5 mg Atorvastatin Calcium (Lipitor) 10 mg PO QHS [facility] Bisacodyl (Dulcolax) 10 mg [place] QDAY PRN PRN Reason: constipation Carvedilol (Coreg) 25 mg PO BID [facility] Last Admin: 11/26/16 14:24 Dose: Not Given Citalopram Hydrobromide (Celexa) 20 mg PO QDAY [facility] Last Admin: 11/26/16 14:23 Dose: 20 mg Clopidogrel Bisulfate (Plavix) 75 mg PO QDAY [facility] Last Admin: 11/26/16 14:24 Dose: 75 mg Colchicine (Colcrys) 0.6 mg PO QDAY [facility] Last Admin: 11/26/16 14:24 Dose: Not Given Colchicine (Colcrys) 0.6 mg PO QDAY [facility] Last Admin: 11/26/16 13:49 Dose: Not Given Dextrose (D50w (25gm) Syringe) 50 ml IV PRN PRN PRN Reason: Hypoglycemia Furosemide (Lasix) 40 mg IV 0600,1800 [facility] Sodium Chloride (Nacl 0.9%) 100 mls @ 999 mls/hr IV [facility]ANIK[facility] PRN PRN Reason: Hypotension Insulin Aspart (Novolog) 0 units SUB-Q [facility] PRN Reason: Protocol Last Admin: 11/26/16 14:25 Dose: Not Given Insulin Aspart (Novolog) 0 units SUB-Q QHS [facility] PRN Reason: Protocol Isosorbide Mononitrate (Imdur) 30 mg PO DAILY [facility] Last Admin: 11/26/16 14:25 Dose: Not Given Lisinopril (Zestril) 10 mg PO QDAY [facility] Last Admin: 11/26/16 14:24 Dose: Not Given Mirtazapine (Remeron) 30 mg PO DAILY [facility] Last Admin: 11/26/16 14:25 Dose: Not Given Morphine Sulfate (Morphine) 2 mg IV Q4H PRN PRN Reason: Pain, Moderate (4-6) Ondansetron HCl (Zofran) 4 mg IM Q4H PRN PRN Reason: Nausea And Vomiting Pantoprazole Sodium (Protonix) 20 mg PO QDAY [facility] Last Admin: 11/26/16 14:24 Dose: Not Given Sevelamer Carbonate (Renvela) 800 mg PO TIDWM [facility] Last Admin: 11/26/16 14:25 Dose: Not Given Exam - Vital Signs Vital signs: Vital Signs Pulse Resp 88 33 H 11/26/16 04:02 11/26/16 04:02 Results - Lab Results 11/26/16 04:23 11/26/16 04:23 Most recent lab results Calcium 8.6 mg/dL (8.4-10.2) 11/26/16 04:23
[2016-11-26] MEDS ORDERED: LASIX IV SCH (18:00)
[2016-11-26] MEDS ORDERED: NACL 0.9% 1000 ML 2,000 ML ONE (20:43)
[2016-11-26 23:28] VITALS: BP 122/64
--- NOTE | 2016-11-27 07:51 | Progress Note ---
Hospitalist Physical - Constitutional Vitals: Temp Pulse Resp BP Pulse Ox 98.8 F 108 H 20 122/64 96 11/26/16 19:55 11/26/16 21:40 11/26/16 21:40 11/26/16 21:40 11/26/16 21:40 General appearance: Present: mild distress, other (on BiPAP 50% with SPO2 >95%) Results - Labs CBC & Chem 7: 11/26/16 04:23 11/26/16 04:23 Labs: Laboratory Last Values WBC 7.3 K/mm3 (4.5-11.0) 11/26/16 04:23 RBC 3.20 M/mm3 (3.65-5.03) L 11/26/16 04:23 Hgb 10.2 gm/dl (11.8-15.2) L 11/26/16 04:23 Hct 30.6 % (35.5-45.6) L 11/26/16 04:23 MCV 96 fl (84-94) H 11/26/16 04:23 MCH 32 pg (28-32) 11/26/16 04:23 MCHC 33 % (32-34) 11/26/16 04:23 RDW 15.8 % (13.2-15.2) H 11/26/16 04:23 Plt Count 177 K/mm3 (140-440) 11/26/16 04:23 Lymph % (Auto) 13.5 % (13.4-35.0) 11/26/16 04:23 Foster % (Auto) 9.3 % (0.0-7.3) H 11/26/16 04:23 Eos % (Auto) 2.3 % (0.0-4.3) 11/26/16 04:23 Baso % (Auto) 0.6 % (0.0-1.8) 11/26/16 04:23 Lymph # 1.0 K/mm3 (1.2-5.4) L 11/26/16 04:23 Foster # 0.7 K/mm3 (0.0-0.8) 11/26/16 04:23 Eos # 0.2 K/mm3 (0.0-0.4) 11/26/16 04:23 Baso # 0.0 K/mm3 (0.0-0.1) 11/26/16 04:23 Seg Neutrophils % 74.3 % (40.0-70.0) H 11/26/16 04:23 Seg Neutrophils # 5.4 K/mm3 (1.8-7.7) 11/26/16 04:23 PT 14.6 Sec. (12.2-14.9) 11/26/16 04:23 INR 1.15 (0.87-1.13) H 11/26/16 04:23 APTT 35.3 Sec. (24.2-36.6) 11/26/16 04:23 D-Dimer 276.39 ng/mlDDU (0-234) H 11/26/16 04:23 Sodium 140 mmol/L (137-145) 11/26/16 04:23 Potassium 4.9 mmol/L (3.6-5.0) 11/26/16 04:23 Chloride 98.5 mmol/L (98-107) 11/26/16 04:23 Carbon Dioxide 24 mmol/L (22-30) 11/26/16 04:23 Anion Gap 22 mmol/L 11/26/16 04:23 BUN 51 mg/dL (9-20) H 11/26/16 04:23 Creatinine 12.8 mg/dL (0.8-1.5) H 11/26/16 04:23 Estimated GFR 5 ml/min 11/26/16 04:23 BUN/Creatinine Ratio 3.98 % 11/26/16 04:23 Glucose 166 mg/dL (75-100) H 11/26/16 04:23 POC Glucose 164 (70-105) H 11/26/16 20:16 Calcium 8.6 mg/dL (8.4-10.2) 11/26/16 04:23 Troponin T 0.319 ng/mL (0.00-0.029) H* 11/26/16 04:23 Triglycerides 92 mg/dL (2-149) 11/26/16 04:23 Cholesterol 104 mg/dL (50-199) 11/26/16 04:23 LDL Cholesterol Direct 47 mg/dL (50-130) L 11/26/16 04:23 HDL Cholesterol 50 mg/dL (40-59) 11/26/16 04:23 Cholesterol/HDL Ratio 2.08 % 11/26/16 04:23
--- NOTE | 2016-11-27 11:29 | Progress Note ---
Objective - Lab 11/26/16 04:23 11/26/16 04:23 Most recent lab results Calcium 8.6 mg/dL (8.4-10.2) 11/26/16 04:23
== END 2016-11-26 21:15 | disposition left against medical advice (07) | DRG 291 ==
LOC: ED 03:59 → CC1 07:56 → CC2 09:18 → CC1 10:56
PROVIDERS: ADMIT Internal Medicine; ATTEND Internal Medicine
PROC: 5A09357 Assistance with Respiratory Ventilation, Less than 24 Consecutive Hours, Continuous Positive Airway Pressure (ICD-10-PCS; principal; 2016-11-26)
PROC: 5A1D00Z (ICD-10-PCS; 2016-11-26)
DX: I13.2 Hypertensive heart and chronic kidney disease with heart failure and with stage 5 chronic kidney disease, or end stage renal disease (principal); N18.6 End stage renal disease; J96.01 Acute respiratory failure with hypoxia; I50.43 Acute on chronic combined systolic (congestive) and diastolic (congestive) heart failure; E11.22 Type 2 diabetes mellitus with diabetic chronic kidney disease; I25.10 Atherosclerotic heart disease of native coronary artery without angina pectoris; I42.9 Cardiomyopathy, unspecified; D63.1 Anemia in chronic kidney disease; I25.2 Old myocardial infarction; Z79.899 Other long term (current) drug therapy; Z79.01 Long term (current) use of anticoagulants; Z82.49 Family history of ischemic heart disease and other diseases of the circulatory system
CPT/HCPCS: 36415; 71010; 80048; 80061; 82962; 84484; 85025; 85379; 85610; 85730; 93005; 93010; 94640; 94760; A9270-GY; J7030; J7050